=== PATIENT | male | born 1945 | race Caucasian/White ===

== ENCOUNTER 2019-12-11 14:29 | Outpatient (CLI) | payer MEDICARE, OTHER ==
[2019-12-12 13:18] LABS: SARS-CoV-2 MS2 Positive; SARS-CoV-2 N Gene Negative; SARS-CoV-2 S Gene Negative; SARS-CoV-2 orf1ab Negative
== END 2019-12-11 14:30 | disposition home or self-care (01) ==
LOC: LABBT 14:29
PROVIDERS: ATTEND Neurological Surgery
DX: Z01.812 Encounter for preprocedural laboratory examination (principal); Z11.59 Encounter for screening for other viral diseases
CPT/HCPCS: 87635; U0003

== ENCOUNTER 2019-12-14 12:03 | Day surgery (SDC) | payer MEDICARE ==
[2019-12-11 15:56] VITALS: BMI 29.8
[~2019-12-14 12:03] MED LIST: EPHEDRINE 25 MG/5 ML SYRINGE ONE; Lidocaine 1% PF 5 ML VIAL ONE; Magnevist 469MG/ML 20 ML VIAL ONE; PHENYLEPHRINE-NS 100 MCG/ML 10 ML SYRINGE ONE; PROPOFOL 200 MG/20 ML VIAL ONE
[2019-12-14 13:38] LABS: Calc. Creatinine Clearance 138 mL/min (70-130); Estimated GFR-MDRD Greater than 90
--- NOTE | 2019-12-14 15:23 | MRI ---
Exam: MRI LUMBAR SPINE WITH AND WITHOUT CONTRAST: HISTORY: [place]. Bilateral leg weakness. Previous lumbar surgery. FINDINGS: Limited evaluation on multiple sequences due to motion degradation. Appropriate T1 marrow signal intensity of the lumbar vertebra. Lumbar spine vertebral body height is maintained. No fracture. Type I and type II Modic changes at the L3-L4 disc space. Appropriate signal intensity of the visualized solid organs. There is atrophy of the paraspinal and p soas muscles. Postcontrast images do not demonstrate any abnormal enhancement of the vertebral bodies. No abnormal enhancement within the thecal sac including the cauda equina and conus medullaris. T12-L1: Disc desiccation with mild loss of disc space height. Broad-based disc bulge abuts the thecal sac. Mild central canal stenosis. Mild bilateral neural foraminal narrowing. L1-L2: Disc desiccation with mild loss of disc space height. Broad-based disc bulge abuts the thecal sac. No significant central canal stenosis. Moderate to severe bilateral neural foraminal narrowing. 4.9 mm of retrolisthesis of L1 upon L2. Disc desiccation with mild loss of disc space height. Broad-based disc bulge abuts the thecal sac. No significant central canal stenosis. Posterior laminectomy defect. Enhancing scar tissue at the operative site. Moderate bilateral neural foraminal narrowing. L3-L4: Disc desiccation with mild to moderate loss of disc space height. Posterior laminectomy defect . No significant central canal stenosis. There is enhancing scar tissue at the operative site. Mild to moderate right and severe left neural foraminal narrowing. L4-L5: Disc desiccation with severe loss of disc space height. There is a central disc herniation whi ch abuts the thecal sac. Mild central canal stenosis. Posterior laminectomy defect with scar tissue at the operative site. Moderate to severe bilateral neural foraminal narrowing. L5-S1: Mild loss of disc space height. No posterior disc abnormality. No significant central canal st enosis. Mild bilateral neural foraminal narrowing. 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 IMPRESSION: 1. Postsurgical changes of the lumbar spine as detailed above. Enhancing scar tissue at the laminecto my defects. 2. Central canal stenosis and neural foraminal narrowing as detailed above. Transcribed Date/Time: 12/14/2019 3:32 PM
== END 2019-12-14 16:15 | disposition home or self-care (01) ==
LOC: SDC/OP 12:03
PROVIDERS: ATTEND Neurological Surgery
DX: M21.379 Foot drop, unspecified foot (principal); M48.061 Spinal stenosis, lumbar region without neurogenic claudication; M54.16 Radiculopathy, lumbar region; Z79.899 Other long term (current) drug therapy; Z88.5 Allergy status to narcotic agent; Z98.890 Other specified postprocedural states
CPT/HCPCS: 36415; 72158; 82565; A9579; J2001; J2704